=== PATIENT | male | born 1970 | race Hispanic/Latino ===

== ENCOUNTER 2021-07-03 10:22 | Emergency (ER) | payer BC ==
[~2021-07-03] VITALS: Ht 167.6 cm; Wt 99.8 kg
[2021-07-03] MEDS ORDERED: IBUPROFEN 400 MG TABLET PO ONE (12:30)
[2021-07-03] MEDS ORDERED: ACETAMINOPHEN 500 MG TABLET PO ONE (12:30)
[2021-07-03] MEDS ORDERED: IBUPROFEN 400 MG TABLET PO SCH (12:30)
[2021-07-03] MEDS ORDERED: ACETAMINOPHEN 500 MG TABLET PO SCH (12:30)
[2021-07-03] MEDS ORDERED: BROM237S PO (12:50)
[2021-07-03] MEDS ORDERED: IBUP-2070 PO (12:50)
[2021-07-03] MEDS ORDERED: ACET-3194 PO (12:50)
[2021-07-03] MEDS ORDERED: ALPRAZOLAM 0.25 MG TABLET PO SCH (13:00)
[2021-07-03 13:47] VITALS: BP 98/71
== END 2021-07-03 13:51 | disposition home or self-care (01) ==
LOC: EDH 10:22
DX: U07.1 COVID-19 (principal); F41.9 Anxiety disorder, unspecified; I10 Essential (primary) hypertension; Z79.899 Other long term (current) drug therapy
CPT/HCPCS: 87635; 87804 ×2; 99283; C9803